=== PATIENT | male | born 1950 | race Caucasian/White ===

== ENCOUNTER 2019-02-28 22:41 | Inpatient (IN) | payer OTHER ==
[~2019-02-28 22:41] MED LIST: ISOVUE-370 76%-LOCM 1 ML ONE
--- NOTE | 2019-02-28 22:58 | CT ---
Exam: Head CT without contrast HISTORY: Level 1 stroke. Right-sided facial droop with sluggish left pupil. Slurred speech. Inability to move right upper extremity. COMPARISON: none FINDINGS: Hemorrhage: No intraparenchymal hemorrhage or extra-axial hematoma. Brain parenchyma: Cortical alonzo-white matter differentiation is preserved. No mass effect or midline shift. Basilar cisterns are patent hypodensities in the left centrum semiovale likely representing remote cavitary lacunar infarcts. Ventricular system: Ventricles and sulci are patent and symmetric. Calvarium: Intact. Sinuses and mastoid air cells: Mild mucosal disease of the right paranasal sinuses. IMPRESSION: No acute intracranial process. Results of study discussed with Dr. Gaspar 02/28/2019 at 1055 Code CR
[2019-02-28 23:12] LABS: #Basophils 0.1 thou/uL (0.0-0.2); #Eosinphils 0.5 thou/uL (0.0-0.7); #Lymphocytes 2.2 thou/uL (1.20-3.40); #Monocytes 0.7 thou/uL (0.11-0.59); #Neutrophils 8.3 thou/uL (1.40-6.50); %Lymphocytes 18.9 % (21.0-51.0); %Monocytes 5.7 % (0.0-10.0); %Neutrophils 70.3 % (42.0-75.0); Hemoglobin 14.9 g/dL (14.0-18.0); Mean Corpuscular HGB CONC 33.8 g/dL (32.0-36.0); Mean Corpuscular Hemoglobin 31.2 pg (27.0-31.0); Mean Corpuscular Volume 92.1 fL (78.0-98.0); Platelet Count 355 thou/uL (130-400); RBC Distribution Width 13.2 % (11.5-14.5); Red Blood Cell (RBC) Count 4.78 mill/uL (4.70-6.10); White Blood Cell (WBC) Count 11.8 thou/uL (4.8-10.8)
[2019-02-28 23:19] LABS: PTT 34.8 SEC (22.9-36.1); Prothrombin Time 13.3 SEC (12.0-14.7)
--- NOTE | 2019-02-28 23:22 | CT ---
Exam: CT angiogram of the head CT angiogram the neck HISTORY: Stroke. Right arm is not moving. Slurred speech. Right facial droop. COMPARISON: None TECHNIQUE: CT angiogram of the neck and head are performed in the axial plane. Three-dimensional refo rmatted images are submitted for dictation FINDINGS: Postcontrast head CT: Cortical alonzo-white matter differentiation is preserved. No evidence of hydroce phalus. White matter hypodensities in the left centrum semiovale are less evident on current examination. Bilateral ocular lenses are appropriately located. Both globes are intact. Right nasal sinus mucosal disease Aerodigestive tract is patent. No mucosal abnormality. No obvious masses in the oral cavity. Midline fatty raphae of the tongue is preserved No prevertebral soft tissue swelling Symmetric attenuation of the parotid and submandibular glands Symmetric attenuation of the sternocleidomastoid muscles line no evidence of lymphadenopathy by size criteria line varying degrees of central canal stenosis or neural foraminal narrowing on the basis of change. Limited evaluation by technique. Extensive emphysematous changes in the visualized lung apices. Soft tissue mass with calcifications i n the right lung apex measuring 1.[address] ANGIOGRAM: Visualized aortic arch has appropriate enhancement and luminal diameter Right carotid: The right carotid artery origin, common carotid artery, carotid bifurcation and international guest coordinator al carotid artery have appropriate enhancement and luminal diameter Left carotid: Left carotid artery origin, common carotid artery of appropriate enhancement and lumina l diameter. There is a combination of calcified and noncalcified plaque involving the left carotid bifurcation and proximal left internal carotid artery. There is short segment severe stenosis of the left internal carotid artery, based upon mass effect criteria. There is also 2 separate areas of ulceration with outpouching of contrast involving the left carotid bifurcation and proximal left in c arotid artery. Largest focus of ulceration measures 0.4 cm. Mid to distal left internal carotid artery is patent Bilateral subclavian arteries are unremarkable. There is mild narrowing of the origin left subclavian artery. Bilateral cervical vertebral arteries are patent. Left vertebral artery is dominant CT angiogram of the head: Distal cervical and intracranial internal carotid arteries have appropriate enhancement diameter Anterior circulation: Symmetric enhancement and luminal diameter of the A1 and M1 segments. Proximal A2 segments and proximal MCA branches are symmetric. Posterior circulation: Intracranial vertebral arteries are patent. Both PICA artery origins are limit ed in evaluation. Both vertebral arteries supply a normal appearing basilar artery. A normal left P1 segment is appreciated. Right P1 segment is not appreciated. Rather, the right [employer] has a khris gin. IMPRESSION: 1. Severe stenosis involving the left internal carotid artery, based on NASCET criteria. 2. Atherosclerosis with atheromatous plaques that have ulceration involving the left carotid bifurca tion and proximal left internal carotid artery. 3. No significant stenosis at the level ione of Shaikh. 4. Soft tissue mass with calcification in the right lung apex, incompletely evaluated 5. Results of study discussed with Dr. Mendosa by 08/10/1911 80 1:00 PM 6. Code CR
[2019-02-28 23:25] LABS: ALT (SGPT) 26 U/L (8-55); AST (SGOT) 35 U/L (5-34); Albumin 4.5 g/dL (3.4-4.8); Alkaline Phosphatase 77 U/L (40-150); Anion Gap 16 mmol/L (10-20); BUN (Urea Nitrogen) 14 mg/dL (8.4-25.7); Bilirubin, Total 0.4 mg/dL (0.2-1.2); CK (CPK) 1599 U/L (30-200); Calc. Creatinine Clearance 0 mL/min (70-130); Carbon Dioxide 25 mmol/L (23-31); Chloride 100 mmol/L (98-107); Estimated GFR-MDRD 53; Globulin 3.2 g/dL (2.4-3.5); Glucose 199 mg/dL (80-115); Potassium 4.1 mmol/L (3.5-5.1); Protein, Total 7.7 g/dL (5.8-8.1); Sodium 137 mmol/L (136-145)
[2019-03-01] MEDS ORDERED: Ondansetron ODT 4 MG TAB PO PRN ×2 (00:41→20:36)
[2019-03-01] MEDS ORDERED: Acetaminophen 325 MG TAB PO PRN (00:41)
[2019-03-01] MEDS ORDERED: Ondansetron PF 4 MG/2 ML Vial IVP PRN ×2 (00:41→20:36)
[2019-03-01] MEDS ORDERED: Labetalol HCl 100 MG/20 ML VIAL SLOW IVP PRN ×2 (00:43→20:36)
[2019-03-01] MEDS: Communication Order-Pharmacy FS SCH (03:00)
[2019-03-01] MEDS: Sodium Chloride 0.9% 1,000 ML IV SCH ×2 (04:28→17:58)
[2019-03-01] MEDS: Gemfibrozil 600 MG TAB PO SCH ×2 (08:04→16:33)
[2019-03-01] MEDS: Lisinopril 20 MG TAB PO SCH (08:40)
[2019-03-01] MEDS: Atorvastatin Calcium 20 MG TAB PO SCH (08:40)
[2019-03-01] MEDS: Furosemide 20 MG TAB PO SCH ×2 (08:40→14:40)
[2019-03-01] MEDS: Famotidine 20 MG TAB PO SCH ×2 (08:47→20:40)
--- NOTE | 2019-03-01 12:16 | RAD ---
Chest AP view INDICATION: History of positive PPD and calcified mass COMPARISON: None FINDINGS: Lungs:There is mild emphysema. Cardiac silhouette pulmonary vasculature:The cardiomediastinal silhouette appears within normal limit s. Pleural spaces:Small left costophrenic angle is excluded. Right costophrenic angle is sharp. Upper abdomen:No abnormality seen. Osseous structures: No acute osseous abnormality. Additional findings:None. IMPRESSION: Mild emphysema. No definite acute cardiopulmonary abnormality evident within the limitati ons of this exam.
--- NOTE | 2019-03-01 12:54 | PRG ---
DATE OF SERVICE: 03/01/2019 SUBJECTIVE: The patient is seen and examined at the bedside. He complains about some shortness of breath and he noticed that his right-sided weakness, which suddenly got worse, did not really change after the tPA treatment. OBJECTIVE: VITAL SIGNS: Blood pressure is 129/89, pulse is 57, respiratory rate is 25, and O2 saturation is 100%. GENERAL: He is in plastic handcuffs. His legs are tied with plastic cuffs too. Two guards are present in the room during my visit. He is an inmate. HEENT: His pupils are somewhat dilated, but symmetrical approximately 4 mm. They respond to light properly. Sclerae are nonicteric. Oral mucosa is moist. NECK: Supple. LUNGS: Slightly diminished breath sounds at both bases. HEART: S1 and S2 normal. No S3. No S4. ABDOMEN: Soft, nontender, and nondistended. EXTREMITIES: No clubbing, cyanosis, or edema. NEUROLOGIC: He follows my commands. He moves his extremities, but there is right-sided weakness in upper and lower extremity. It is approximately 4/5 in both extremities. SKIN: No rash or erythema. LABORATORY DATA: Glycemia is ranging from 180 to 201. MICROBIOLOGY: None. IMAGING: Chest x-ray showed some emphysema. IMPRESSION: 1. Worsened right-sided weakness with some slurred speech, status post tPA without any significant improvement. The patient is scheduled for MRI on his brain. 2. Chronic obstructive pulmonary disease. We are going to start him on DuoNeb q.4 hours p.r.n. as needed. 3. Bradycardia. We will cut back on his beta lazara to half dose. 4. Diabetes mellitus. We will start him on his glipizide 5 mg twice a day and we will continue Accu-Cheks before meals and at bedtime. PLAN: Neurology consultation is still pending. We will obtain CBC and BMP this morning. We will continue Accu-Cheks as ordered before meals and at bedtime. DuoNeb will be started every 4 hours p.r.n. and remain in the intensive care unit until tomorrow. Job ID: [id number]
[2019-03-01] MEDS ORDERED: Lorazepam 2 MG/ML VIAL SLOW IVP PRN (15:50)
--- NOTE | 2019-03-01 18:20 | CON ---
DATE OF CONSULTATION: 03/01/2019 HISTORY OF PRESENT ILLNESS: Mr. Polk is a 68-year-old male with [employer] inmate. He reports loss of right leg and right arm function yesterday evening. He is seen in the emergency department. He has had no change in his speech. He has undergone a CT angiogram of his head, which shows a severe left internal carotid stenosis, plaque ulceration of the left carotid bifurcation and proximal left internal carotid artery, calcified right apical lung mass. He says he has had a stroke involving his right upper extremity, right lower extremity in the past, but he had return of majority of his function. CT of his head showed left centrum semiovale hypodensities suggestive of remote lacunar infarcts. PAST MEDICAL HISTORY: Remarkable for; 1. Hypertension. 2. Herniorrhaphy in the past. 3. History of COPD. 4. History of lipid disorder. 5. History of diabetes. 6. History of cholecystectomy. SOCIAL HISTORY: Noncontributory. FAMILY HISTORY: Negative for lung disease in early age. REVIEW OF SYSTEMS: A 10-point review of systems completed, otherwise negative. PHYSICAL EXAMINATION: GENERAL: He is very pleasant gentleman, in no distress. VITAL SIGNS: Heart rate 60, blood pressure 115/89, respiratory rate 17, and oximetry is 100%. HEENT: Pupils react. Sclerae anicteric. Extraocular movements appear full. NECK: Supple. LUNGS: Clear. HEART: Regular rhythm. S1 and S2 normal. ABDOMEN: Soft and nontender. EXTREMITIES: Flaccid in right lower extremity and right upper extremity. IMPRESSION: ? Cerebrovascular accident. I am surprised he has speech given the density of his right upper extremity and right lower extremity neuro deficits. Neurology has been consulted. He is having no acute hemodynamic or respiratory issues at this time. We will follow the other physicians. TIME SPENT: This is a 70-minute consult, with greater than 50% of the time spent on the unit coordinating care. ADDENDUM: I went back in and requestioned Mr. Polk. He says he took INH and B6 for many months, but he says he has never been told he had active tuberculosis or had a past pulmonary infection that was tuberculosis. He does report having pneumonia in the past. With regard to the calcified density of his apex, I will start with a chest x- ray. Job ID: [id number] [facility]
--- NOTE | 2019-03-01 19:00 | CON ---
DATE OF CONSULTATION: 03/01/2019 TELEMEDICINE CONSULTATION WITH BETTY SCHAFFER CHIEF COMPLAINT: Acute stroke. HISTORY OF PRESENT ILLNESS: History was obtained both from the chart and the patient's report. The patient apparently was short of breath yesterday and he lost his sensation on the right side and developed right-sided weakness, which began around 2102 hours and he was at the ER by 2229 hours last night and he was given IV tPA without much improvement of his weakness. He also felt numbness. He had prior strokes and had residual right-sided weakness. At baseline, he walks with a walker. He is in the [place] [employer] at this time and is an inmate. The patient uses a walker, has residual right-sided weakness from his prior CVAs. PREVIOUS MEDICAL HISTORY: CVA in 2000 and 2006. Also diabetic. He takes insulin. He took insulin in the past along with metformin and currently on oral medication for diabetes and he stated this is well controlled at this time. 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 Hypercholesterolemia. Three MIs in the past and a history of cleft palate. FAMILY HISTORY: Positive for CVA in his mother, who at age 83 and his father at age 89 following coronary artery disease. Father was also alcoholic. His brother had coronary artery disease and at age of 48. He has six daughters ranging from ages 45 to 7, youngest daughter is 7 years old. One of his daughters, who is 31 has coronary artery disease and diabetes. SOCIAL HISTORY: He used to smoke and drink. He was alcoholic, but he has not drank nor smoked in the last five years and he is an inmate at the [place] [employer]. REVIEW OF SYSTEMS: PULMONARY: Negative for cough, but positive for shortness of breath. GI: Negative for nausea, diarrhea, or vomiting. NEUROLOGIC: Positive for right-sided weakness and numbness. DERMATOLOGIC: Negative for skin rash or any other issues. HEMATOLOGIC: Negative for any bleeding diatheses. CARDIAC: Negative for chest pain. LABORATORY WORKUP: White count 11.8, hemoglobin 14.9, hematocrit 44, and platelet count 355. Coags; PT 13.3, INR 1, and PTT 34.8. Chemistry; sodium 137, potassium 4.1, chloride 100, bicarb 25, BUN 14, creatinine 1.34, and glucose 199. CPK 1599 and his cholesterol panel is pending and his CT angiogram was completed yesterday and his CTA showed severe stenosis of the left ICA based on NASCET criteria and atherosclerosis with atheromatous plaques with ulceration involving left carotid bifurcation and proximal left ICA. No stenosis at the level of the [place] of [place] and he has a soft tissue mass with calcification in the right lung apex, which needs to be evaluated further. CT of the head was unremarkable. The patient is waiting for his MRI of the brain. PHYSICAL EXAMINATION: VITAL SIGNS: Blood pressure 135/90, heart rate 56, he is afebrile with temperature of 97.9, and respiratory rate 16. GENERAL APPEARANCE: Well-built, well-nourished gentleman. CHEST: Showed decreased breath sounds. CARDIOVASCULAR: S1 and S2 heard. No murmurs. ABDOMEN: Soft. NEUROLOGIC: Higher intellectual functions. Oriented to time, place, and person and appropriate conversation. Cranial nerves normal extraocular movements. He has facial asymmetry, mostly mild on the right side. His pupils are equally reactive at 4 mm bilaterally. Tongue midline. No atrophy noted. Normal sensation of face bilaterally. Hearing is normal. Motor bulk normal. Tone normal. Strength over 5/5 on the left side and he had flaccid weakness on the right side. He has 0/5 strength on the right side. Muscle groups tested are deltoid, biceps, triceps, wrist extension, flexion, finger extension and flexion bilaterally. Deep tendon reflexes are 2+ throughout. Sensory examination showed decreased sensation on the right side. Cerebellar normal on the left side. IMPRESSION: The patient is a 68-year-old man with dense right hemiparesis even post IV tPA administration. He is currently waiting on his MRI of the brain to determine the exact location of his CVA. It could be related to his left internal carotid artery occlusion or could be more of an internal capsule lesion. RECOMMENDATIONS: Please follow the acute tPA protocol for stroke management. Continue aspirin and statin and I will check on his MRI, will be back to round on him tomorrow. Job ID: [id number] [facility]
[2019-03-01] MEDS: Venlafaxine HCl XR 75 MG CAP PO SCH (20:41)
[2019-03-01] MEDS: glipiZIDE 5 MG TAB PO SCH (20:41)
[2019-03-01] MEDS: Acetaminophen 325 MG TAB PO PRN (20:42)
[2019-03-01] MEDS: Latanoprost 0.005% Ophth Soln 2.5 ml Bottle EA EYE SCH (20:43)
[2019-03-01 22:53] LABS: #Basophils 0.1 thou/uL (0.0-0.2); #Eosinphils 0.5 thou/uL (0.0-0.7); #Lymphocytes 2.7 thou/uL (1.20-3.40); #Monocytes 0.7 thou/uL (0.11-0.59); #Neutrophils 5.4 thou/uL (1.40-6.50); %Basophils 1.4 % (0.0-1.0); %Eosinophils 5.1 % (0.0-10.0); %Lymphocytes 29.2 % (21.0-51.0); %Neutrophils 57.3 % (42.0-75.0); Hemoglobin 14.3 g/dL (14.0-18.0); Mean Corpuscular HGB CONC 34.2 g/dL (32.0-36.0); Mean Corpuscular Hemoglobin 31.3 pg (27.0-31.0); Mean Corpuscular Volume 91.5 fL (78.0-98.0); Mean Platelet Volume 6.8 fL (7.4-10.4); Platelet Count 344 thou/uL (130-400); RBC Distribution Width 13.3 % (11.5-14.5); Red Blood Cell (RBC) Count 4.55 mill/uL (4.70-6.10); White Blood Cell (WBC) Count 9.3 thou/uL (4.8-10.8)
[2019-03-02] MEDS: Communication Order-Pharmacy FS SCH (01:00)
[2019-03-02] MEDS: Sodium Chloride 0.9% 1,000 ML IV SCH ×2 (05:53→21:45)
[2019-03-02] MEDS: Gemfibrozil 600 MG TAB PO SCH ×2 (07:45→16:30)
[2019-03-02 08:38] LABS: #Basophils 0.1 thou/uL (0.0-0.2); #Eosinphils 0.7 thou/uL (0.0-0.7); #Lymphocytes 2.4 thou/uL (1.20-3.40); #Monocytes 0.7 thou/uL (0.11-0.59); #Neutrophils 5.9 thou/uL (1.40-6.50); %Basophils 1.3 % (0.0-1.0); %Eosinophils 6.8 % (0.0-10.0); %Monocytes 6.8 % (0.0-10.0); %Neutrophils 60.1 % (42.0-75.0); Mean Corpuscular HGB CONC 33.9 g/dL (32.0-36.0); Mean Corpuscular Hemoglobin 31.6 pg (27.0-31.0); Mean Corpuscular Volume 93.3 fL (78.0-98.0); Platelet Count 340 thou/uL (130-400); RBC Distribution Width 13.7 % (11.5-14.5); Red Blood Cell (RBC) Count 4.74 mill/uL (4.70-6.10); White Blood Cell (WBC) Count 9.8 thou/uL (4.8-10.8)
[2019-03-02] MEDS: glipiZIDE 5 MG TAB PO SCH ×2 (08:54→22:04)
[2019-03-02] MEDS: Lisinopril 20 MG TAB PO SCH (08:54)
[2019-03-02] MEDS: Atorvastatin Calcium 20 MG TAB PO SCH (08:54)
[2019-03-02] MEDS: Famotidine 20 MG TAB PO SCH ×2 (08:54→22:04)
[2019-03-02] MEDS: Furosemide 20 MG TAB PO SCH ×2 (08:54→14:06)
[2019-03-02 09:01] LABS: Anion Gap 18 mmol/L (10-20); BUN (Urea Nitrogen) 13 mg/dL (8.4-25.7); Calc. Creatinine Clearance 109 mL/min (70-130); Calcium 9.4 mg/dL (7.8-10.44); Carbon Dioxide 15 mmol/L (23-31); Chloride 106 mmol/L (98-107); Estimated GFR-MDRD 71; Glucose 156 mg/dL (80-115); Potassium 4.6 mmol/L (3.5-5.1); Sodium 134 mmol/L (136-145)
--- NOTE | 2019-03-02 09:57 | PRG ---
DATE OF SERVICE: 03/02/2019 SUBJECTIVE: Mr. Polk has more use of his right upper extremity today. He is actually able to use his right upper extremity to balance him sitting on the side of the bed. He has no movement of his right lower extremity. He has no new complaints. OBJECTIVE: VITAL SIGNS: Blood pressure 165/95, heart rate 54, respiratory rate 15, oximetry is 100%. HEENT: Pupils reactive. Sclerae are anicteric. LUNGS: Clear. HEART: Regular rhythm. S1 and S2 are normal. ABDOMEN: Soft and nontender. EXTREMITIES: Unchanged. LABORATORY DATA: White count 9.8, hemoglobin 15.0, and platelets 340,000. Sodium 134, potassium 4.6, chloride 106, bicarb 15, BUN 13, creatinine 1.04, and glucose 156. IMPRESSION: 1. Thrombotic cerebrovascular accident status post tPA. 2. History of cerebrovascular accident in the past. 3. 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 4. Obesity. 5. History of hypertension. 6. History of chronic obstructive pulmonary disease with no bronchospasm at this time. 7. Diabetes. 8. History of lipid disorder. PLAN: He is stable to move to a stroke unit in my opinion. We will sign off when he transfers out of the critical care unit. Job ID: [id number]
--- NOTE | 2019-03-02 11:33 | PRG ---
DATE OF SERVICE: 03/02/2019 TELEMEDICINE CONSULTATION WITH MICHAEL SCHAFFER CHIEF COMPLAINT: Acute stroke. INTERVAL HISTORY: The patient is now able to move his fingers in the right hand and toes continuously. He has been asymptomatic as far as side effects from tPA. He reports he feels slightly better. LABORATORY WORKUP: White count 9.8, hemoglobin 15, hematocrit 44.3, and platelet count 340. Sodium 134, potassium 4.6, chloride 106, bicarb 15, BUN 13, creatinine 1.04, and glucose 156. His MRI is still pending. PHYSICAL EXAMINATION: VITAL SIGNS: Blood pressure 160/97, pulse is 58, and temperature is 97.8. GENERAL APPEARANCE: Well-built, well-nourished man, who is in shackles, seems more comfortable than yesterday. CHEST: Clear. NEUROLOGIC: Cranial nerve examination, normal extraocular movements. Tongue midline. Motor examination, strength 5/5 on the left side. On the right side, he was able to elevate and hold his arm and leg up against gravity for a few seconds with help and had some movement of his fingers and toes, which can be graded best as 1+. IMPRESSION: The patient is a 68-year-old man, who had an acute cerebrovascular accident with generalized weakness on the right side of the face, arm, and leg distribution. He received IV tPA. He is currently pending MRI of the brain and full workup including cardiac workup is pending. RECOMMENDATIONS: Please continue current anti-platelet agents and if MRI is abnormal, please call Dr. Leiva. Job ID: [id number] [facility]
[2019-03-02] MEDS: Latanoprost 0.005% Ophth Soln 2.5 ml Bottle EA EYE SCH (22:04)
[2019-03-02] MEDS: Venlafaxine HCl XR 75 MG CAP PO SCH (22:05)
--- NOTE | 2019-03-02 22:12 | CON ---
DATE OF CONSULTATION: 03/02/2019 CHIEF COMPLAINT: Right-sided weakness. HISTORY OF PRESENT ILLNESS: The patient is a 68-year-old hypertensive, diabetic male with known cerebral vascular disease. He describes left hemispheric strokes in 2007 and in 2018. At baseline, both his right leg and arm are weak, but he is able to use his right arm with some limitations in part due to arthritic issues with his shoulder in addition to his stroke, but is able to do simple movements and is able to write. His right leg is at baseline weak, but he is able to walk with a walker. Two days ago, he had sudden onset of complete loss of his right arm and leg and was treated with tPA upon presentation here. He has had minimal recovery of use of that arm and leg over the last couple of days. CT angiography demonstrated essentially normal right carotid system, but an extensively ulcerated lesion at the bulb and proximal ICA on the left. PAST MEDICAL HISTORY: Significant for hypertension, hyperlipidemia, diabetes, and COPD. He has had a previous cholecystectomy and herniorrhaphy. MEDICATIONS: His normal medications are: 1. Metformin 1000 mg b.i.d. 2. Glipizide 5 mg b.i.d. 3. Toprol-XL 100 mg b.i.d. 4. Lisinopril 20 mg a day. 5. Lasix 20 mg b.i.d. 6. Lipitor 20 mg a day. 7. Baby aspirin a day. 8. Omeprazole 20 mg a day. 9. Ranitidine 150 mg b.i.d. 10. Effexor 75 mg at bedtime. 11. Gemfibrozil 600 mg p.o. b.i.d. 12. Latanoprost eye drops each eye in the evening. 13. His Toprol was cut to 50 mg b.i.d., but he is on nicardipine drip. ALLERGIES: HE DENIES ANY MEDICAL ALLERGIES. SOCIAL HISTORY: He smoked for many years, but quit at the start of his current period of incarceration about 3 years ago. FAMILY HISTORY: Negative for any known lung disease. His mother lived age 83, but had a stroke. His father lived age 89, but had coronary artery disease. He has a brother, who of coronary artery disease in his late 40s. He has a child, whose age 31 and has coronary artery disease and diabetes. REVIEW OF SYSTEMS: Negative for any antecedent eye, speech, facial or extremity symptoms consistent with TIAs. It is negative for any chest pain. It is positive for shortness of breath, saying that sometimes with simply walking from one room to another, he will get short of breath. He has had a recent nonproductive cough. He denies any hemoptysis. He denies any orthopnea, PND, or pedal edema. He denies any seizures. He denies any weight loss. Denies any change in bowel or bladder habits, color or character caliber of stools. He denies any known tuberculosis exposure, but describes about 20 years ago, having had a positive PPD when he was first incarcerated. He completed a course of INH at that time. PHYSICAL EXAMINATION: GENERAL: He is in no distress. VITAL SIGNS: On presentation, his heart rate was 62, and blood pressure 143/87. Most recently, his heart rate is 60, blood pressure 126/84, and O2 saturations are in the 99% to 100% range on 2 L nasal cannula. HEENT: He is edentulous. He has no xanthelasma. NECK: No JVD. No carotid bruits. CHEST: Clear to auscultation. When asked to blow out forcefully against my hand, he moves very little air and starts coughing. HEART: He has a regular rate and rhythm. ABDOMEN: Soft and nontender. EXTREMITIES: He has no clubbing, cyanosis, or edema. NEUROLOGIC: Cranial nerves 2 through 12 are grossly intact with possible exception of right trapezius distribution. He reports difficulty with elevating that shoulder of long-standing because of arthritic problems related to that shoulder. He is able to very feebly wiggle his right toes and right fingers, very feebly able to do minimal elbow flexion overcoming gravity. He is not able to do any more than that with his right arm or with his right leg. He is not able to maintain the extension against resistance. DIAGNOSTIC DATA: His chest x-ray has some hazy densities in the lower cuts of . CT angiogram shows right-sided lung mass towards the apex with some speckles of calcification. His right carotid system is essentially clean with one tiny speck of calcified plaque at the carotid bifurcation, but no stenosis on the left side. The internal carotid has a fairly right-angled takeoff at the bulb. There is a complex ulcerated plaque in the bulb extending into the proximal ICA with luminal stenosis ranging from about 50% to about 80%. LABORATORY DATA: Shows white count of 11.8, hemoglobin of 14.9, hematocrit 44.0, platelets at 355,000. On presentation, his PT was 13.3, INR 1.0, and PTT 34.8. His electrolytes were normal and glucose was 199, BUN 14, creatinine 1.34, calcium was 10, bilirubin 0.4, AST 35, ALT 26, alkaline phosphatase 77. CK was 1599, but troponin was less than 0.010. Protein is 7.7, albumin 3.2. His Accu-Cheks have mostly been in the upper 100s to low 200s. Followup set of chemistries this morning show a BUN of 13 and creatinine of 1.04 with a glucose of 156. IMPRESSION AND RECOMMENDATIONS: Probably the more pressing issue is his acute stroke. The patient received tPA in the emergency room and really has had very little functional recovery. His initial CT scan did not show any obvious massive injury and MRI to follow that up is pending. He certainly has had a dramatic worsening of his neurologic deficit. The degree of stenosis is significant, but not critical. I will follow him at least briefly to monitor for functional recovery to decide about timing of endarterectomy. He is going to need a dedicated CT scan of the chest with IV contrast to evaluate his lung mass, although this could I suppose represent a tuberculoma given his past history of a positive PPD, I would assume that this is new compared to then, since he only underwent a course of INH rather than treatment for active disease. He will probably need formal PFTs, but simply based on bedside assessment when I asked him blow out hard against my hand and what he describes about his limitations, he may not be a very good candidate for any sort of resection if this mass does prove to represent a malignancy. Job ID: [id number]
[2019-03-02] MEDS: Acetaminophen 325 MG TAB PO PRN (23:20)
--- NOTE | 2019-03-03 07:14 | HP ---
PRIMARY CARE DOCTOR: The patient has no PCP. CODE STATUS: Full code. TIME OF EVALUATION: 12:00 a.m. CHIEF COMPLAINT: Right-sided deficit. HISTORY OF PRESENT ILLNESS: This is a 68-year-old male patient with past medical history of previous stroke x3, hypertension, hyperlipidemia, diabetes, came to the hospital after having right-sided weakness associated with slurred speech. Symptoms were severe. The patient is unable to move his extremities on the right side at all. No clear triggers, no alleviating factors. Symptoms started around 9:00 p.m. and was brought in, stroke alert was called. The patient is receiving tPA; for that reason, will be placed in ICU. REVIEW OF SYSTEMS: CONSTITUTIONAL: No fever, chills, or generalized weakness. RESPIRATORY: No cough, sputum production, or shortness of breath. CARDIOVASCULAR: No chest pain or palpitation. GASTROINTESTINAL: No nausea. No vomiting, diarrhea, or abdominal pain. 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 No headaches or feeling lightheaded. GENITOURINARY: No burning on urination. EXTREMITIES: No leg swelling. All other systems were reviewed and negative except for the findings mentioned above. PAST MEDICAL HISTORY: As mentioned in the HPI. PAST SURGICAL HISTORY: Positive for hernia surgery x3, gallbladder surgery. FAMILY HISTORY: Reviewed and noncontributory for current presentation. KNOWN ALLERGIES: No known drug allergies reported. REPORTED MEDICATIONS: 1. Venlafaxine. 2. Aspirin. 3. Atorvastatin. 4. Lasix. 5. Gemfibrozil. 6. Glipizide. 7. Latanoprost. 8. Lisinopril. 9. Metformin. 10. Metoprolol. 11. Omeprazole. 12. Ranitidine. 13. Simethicone. PHYSICAL EXAMINATION: VITAL SIGNS: On presentation, blood pressure 143/87 with heart rate 62, respiratory rate was 18, temperature 98.4, pain was 6/10, oxygen saturation was 94% on room air. GENERAL APPEARANCE: The patient is alert, oriented, not in acute distress. HEENT: Eyes; normal conjunctivae. Moist oral mucosa. Anicteric. NECK: No JVD. RESPIRATORY: Bilateral air entry. No rales. No wheezes. Symmetric expansion. CARDIOVASCULAR: Normal rate, regular rhythm. No murmurs. No gallop. No edema. ABDOMEN: Soft. Normal bowel sounds. MUSCULOSKELETAL: Baseline range of motion and strength. No tenderness. Residual right-sided deficit from the stroke. SKIN: Warm, intact. No pallor. No rash. No redness. Peripheral pulses are present. Capillary refill seems to be intact. NEUROLOGIC: The patient has right-sided weakness with total deficit and dysarthria. Otherwise, cranial nerves seems to be intact. PSYCH: The patient is in good mood. No anxiety. Optimal judgment. IMAGING STUDIES: EKG was reviewed. The patient has sinus bradycardia with first-degree AV block, ventricular rate 59, QT-corrected 409. CT angio was done of the brain and neck. The patient had severe stenosis involving the left internal carotid artery, atherosclerosis with atheromatous plaques and initiation involving the left carotid bifurcation and proximal left internal carotid artery. No significant stenosis at the level of the [place] of [place]. Soft tissue mass with calcification in the right lung apex, incompletely evaluated. CT without contrast showed no acute intracranial process. LABORATORY DATA: Labs were reviewed and the patient has white count 11.8, hemoglobin 14.9, MCV 92.1, platelet count 255. Coagulation; PT 13.3, INR 1.0, PTT 34.8. Chemistry, sodium 137, potassium 4.1, chloride 100, carbon dioxide 25, anion gap 16, BUN 14, creatinine 1.34, GFR 53, glucose 199, calcium 10, total bilirubin 0.4, AST 35, ALT 26, alkaline phosphatase 77, CK 1599. ASSESSMENT AND PLAN: The patient will be placed in the hospital with following medical problems: 1. Acute stroke, status post cerebrovascular accident. The patient is going to ICU to follow post cerebrovascular accident protocol. We will control the blood pressure. We will watch for any bleeding and we will watch the mentation in case the patient needs a repeat CT. 2. Uncontrolled diabetes. We will reconcile home medications. We will place the patient on sliding scale for optimal control. We will hold p.o. glipizide and metformin until the patient is out of risk for contrast-induced nephropathy. 3. Deep venous thrombosis prophylaxis. Past medical history is hyperlipidemia, low-cholesterol diet is advised. Needs better control of diabetes. 4. Control of blood pressure is being within normal limits after admission. We will reconcile home medications. Adjust as needed. 5. Deep venous thrombosis prophylaxis. Job ID: [id number]
--- NOTE | 2019-03-03 08:06 | PDOC.PN ---
- Subjective Encounter Start Date: 03/03/19 Encounter Start Time: 10:00 Subjective: Patient with some mild movement in RLE, RUE a bit stronger. Feels a -: bit tired from sedative for MRI this AM. No other complaints. - Objective Resuscitation Status - Order Detail: 03/01/19 00:41 Resuscitation Status Routine Resuscitation Status: FULL: Full Resuscitation MAR Reviewed: Yes Vital Signs & Weight: Vital Signs (12 hours) Temp Pulse Resp BP Pulse Ox 03/03/19 07:51 97.4 F L 57 L 18 118/74 93 L 03/03/19 04:00 97.4 F L 54 L 18 105/73 91 L 03/03/19 00:12 94 L 03/03/19 00:05 94 L 03/03/19 00:00 97.7 F 54 L 19 96/59 L 92 L 03/02/19 20:30 94 L Weight Weight 248 lb 3 oz Most Recent Monitor Data Heart Rate from ECG 68 NIBP 148/91 NIBP BP-Mean 110 Respiration from ECG 23 SpO2 100 I&O: 03/02/19 03/03/19 03/04/19 06:59 06:59 06:59 Intake Total 1500 2131 Output Total 4550 2525 Balance -3050 -394 Result Diagrams: 03/02/19 08:17 03/02/19 08:17 Additional Labs: Accuchecks 03/03/19 03/02/19 03/02/19 06:12 22:00 16:25 POC Glucose 134 H 152 H 140 H 03/02/19 11:11 POC Glucose 193 H Radiology Reviewed by me: Yes (MRI neg for stroke or bleed, CT chest with 2cm mass vs. scarring, needs PET) Phys Exam - Physical Examination Constitutional: NAD HEENT: moist MMs Respiratory: no wheezing, no rales, no rhonchi Cardiovascular: RRR, no significant murmur Gastrointestinal: soft, positive bowel sounds Musculoskeletal: no edema 3.5/5 strength RUE, 2-3/5 strength RLE Psychiatric: normal affect, A&O x 3 Dx/Plan (1) Acute ischemic stroke Code(s): I63.9 - CEREBRAL INFARCTION, UNSPECIFIED Status: Acute Comment: Severe worsening of RUE and RLE weakness, MRI neg, s/p TPA without complication (2) Carotid stenosis Code(s): I65.29 - OCCLUSION AND STENOSIS OF UNSPECIFIED CAROTID ARTERY Status : Acute Qualifiers: Laterality: left Qualified Code(s): I65.22 - Occlusion and stenosis of left carotid artery Comment: Severe stenosis of Left ICA, ulcerated plaque of Left Carotid bulb and ICA, Dr. Mccarthy following, likely CEA as outpatient after recovery from acute stroke (3) Lung mass Code(s): R91.8 - OTHER NONSPECIFIC ABNORMAL FINDING OF LUNG FIELD Status: Acute Comment: calcified soft tissue mass in right lung apex, most likely scar per CT this AM but can't exclude mass, needs outpatient PET scan (4) Diabetes mellitus type 2 in obese Code(s): E11.69 - TYPE 2 DIABETES MELLITUS WITH OTHER SPECIFIED COMPLICATION; E66.9 - OBESITY, UNSPECIFIED Status: Chronic Comment: on oral hypoglycemics , decent control (5) Bradycardia Code(s): R00.1 - BRADYCARDIA, UNSPECIFIED Status: Acute Comment: decreased Metoprolol dose - Plan cont current plan of care, PT/OT, DVT proph w/SCDs restart aspirin and low dose lovenox since MRI negative for bleeding -[facility] -: outpatient PET to further evaluate lung scar vs. mass * . - Discharge Day Encounter end time: 10:20
[2019-03-03] MEDS: Atorvastatin Calcium 20 MG TAB PO SCH (08:18)
[2019-03-03] MEDS: Furosemide 20 MG TAB PO SCH ×2 (08:18→13:22)
[2019-03-03] MEDS: glipiZIDE 5 MG TAB PO SCH ×2 (08:18→21:56)
[2019-03-03] MEDS: Lisinopril 20 MG TAB PO SCH (08:18)
[2019-03-03] MEDS: Gemfibrozil 600 MG TAB PO SCH ×2 (08:18→16:10)
[2019-03-03] MEDS: Famotidine 20 MG TAB PO SCH (08:19)
--- NOTE | 2019-03-03 08:43 | PRG ---
DATE OF SERVICE: 03/02/2019 SUBJECTIVE: The patient is seen and examined at the bedside. He is in plastic handcuffs and two guards by the door present. There was no any unexpected events overnight. OBJECTIVE: VITAL SIGNS: Blood pressure is 160/97, pulse is 58, respiratory rate is 23, O2 saturation is 100%. HEENT: His head is atraumatic and normocephalic. Eyes are PERRLA. Sclerae are nonicteric. Oral mucosa is . LUNGS: Breath sounds diminished at both bases. No wheezing. HEART: S1, S2 normal. No S3. No S4. ABDOMEN: Soft, nontender. EXTREMITIES: No clubbing, cyanosis, or edema. NEUROLOGICAL EXAMINATION: He follows my commands. He moves his all four extremities. I do not see any facial droop. He has some weakness from the previous stroke in the right upper and lower extremity. SKIN: No rash or erythema. LABORATORY DATA: White count of 9.8, hemoglobin 15.0, hematocrit 44.3, platelet count is 340. Chemistry showed sodium of 134, potassium 4.6, chloride 106, CO2 15, BUN is 13, creatinine 1.04. Glycemia is ranging from 123 to 216, calcium is 9.4. IMPRESSION: 1. Most likely left cerebrovascular accident with right-sided weakness and some slurred speech, status post tPA. MRI of the brain is pending. The patient is clinically stable. Will be moved to the Stroke Unit. 2. Chronic obstructive pulmonary disease, on DuoNebs, improved. 3. Bradycardia. The patient was started on half dose of his beta-lazara yesterday and his pulse is still below 60. We will watch him closely. 4. Diabetes mellitus, improved glycemia since we started him on his glipizide 5 mg twice a day. 5. Acidosis, which looks like metabolic and this could be RTA. PLAN: As mentioned above, transfer to Stroke Unit. MRI of the brain. Continue his current regimen with atorvastatin, and metoprolol 50 mg twice a day, which is half a dose and then, will be restarted since this was recommended by neurologist. Job ID: [id number]
[2019-03-03] MEDS ORDERED: Lorazepam 2 MG/ML VIAL SLOW IVP PRN (09:00)
[2019-03-03] MEDS: Sodium Chloride 0.9% 1,000 ML IV SCH ×2 (09:03→21:57)
--- NOTE | 2019-03-03 09:28 | MRI ---
Exam: Brain MRI without contrast HISTORY: Right facial droop. Sluggish left pupil. COMPARISON: None FINDINGS: Calvarial marrow signal intensity: Appropriate T1 signal Gradient echo sequence: No hemorrhage Brain parenchyma: No mass, mass effect or midline shift. Brain volume, age-appropriate. Cortical alonzo-white matter differentiation: Preserved Restricted diffusion: Central arterial flow voids are maintained. Absent restricted diffusion White matter signal intensities: T2, FLAIR white matter hyperintensities due to chronic small vessel ischemic changes Sinuses: Mild mucosal disease and thickening involving bilateral ethmoid air cells and maxillary sinu ses. Partial opacification of bilateral mastoid air cells. IMPRESSION: 1. Absent restricted diffusion. No acute infarction 2. Age-appropriate atrophy. There are chronic small vessel ischemic changes of the white matter.
[2019-03-03] MEDS ORDERED: ISOVUE-370 76%-LOCM 1 ML ONE (09:51)
--- NOTE | 2019-03-03 10:09 | CT ---
CT CHEST WITH IV CONTRAST: HISTORY: Right lung mass. Cough FINDINGS: There are emphysematous changes in the lung العلي bilaterally with a 2 cm partially calcified densit y in the posterior aspect of the right upper lobe close to the lung apex. This likely represents scarring though the possibility of a mass cannot be completely excluded. Evaluation with PET scan wou ld be helpful. No other masses are nodules are seen. No mediastinal, hilar or axillary mass or lymphadenopathy is seen. There are vascular calcifications without aneurysm of the thoracic aorta. No pleural or pericardial effusions are identified. Upper abdominal tomograms demonstrate changes of fatty infiltration of the liver and previous cholecy stectomy. There are degenerative changes in the spine. IMPRESSION: Mass versus scarring in the right lung apex. RECOMMENDATION: Further evaluation with PET scan is recommended.
[2019-03-03] MEDS ORDERED: Enoxaparin Sodium 40 MG/0.4 ML SYRINGE SC SCH (10:30)
[2019-03-03] MEDS ORDERED: Aspirin 81 mg Enteric Coated Tablet PO SCH (10:30)
--- NOTE | 2019-03-03 12:13 | CT ---
Exam: CT angiogram of the head CT angiogram the neck HISTORY: Stroke. Right arm is not moving. Slurred speech. Right facial droop. COMPARISON: None TECHNIQUE: CT angiogram of the neck and head are performed in the axial plane. Three-dimensional refo rmatted images are submitted for dictation FINDINGS: Postcontrast head CT: Cortical alonzo-white matter differentiation is preserved. No evidence of hydroce phalus. White matter hypodensities in the left centrum semiovale are less evident on current examination. Bilateral ocular lenses are appropriately located. Both globes are intact. Right nasal sinus mucosal disease Aerodigestive tract is patent. No mucosal abnormality. No obvious masses in the oral cavity. Midline fatty raphae of the tongue is preserved No prevertebral soft tissue swelling Symmetric attenuation of the parotid and submandibular glands Symmetric attenuation of the sternocleidomastoid muscles line no evidence of lymphadenopathy by size criteria line varying degrees of central canal stenosis or neural foraminal narrowing on the basis of change. Limited evaluation by technique. Extensive emphysematous changes in the visualized lung apices. Soft tissue mass with calcifications i n the right lung apex measuring 1.[address] ANGIOGRAM: Visualized aortic arch has appropriate enhancement and luminal diameter Right carotid: The right carotid artery origin, common carotid artery, carotid bifurcation and risk management internship al carotid artery have appropriate enhancement and luminal diameter Left carotid: Left carotid artery origin, common carotid artery of appropriate enhancement and lumina l diameter. There is a combination of calcified and noncalcified plaque involving the left carotid bifurcation and proximal left internal carotid artery. There is short segment severe stenosis of the left internal carotid artery, based upon mass effect criteria. There is also 2 separate areas of ulceration with outpouching of contrast involving the left carotid bifurcation and proximal left in c arotid artery. Largest focus of ulceration measures 0.4 cm. Mid to distal left internal carotid artery is patent Bilateral subclavian arteries are unremarkable. There is mild narrowing of the origin left subclavian artery. Bilateral cervical vertebral arteries are patent. Left vertebral artery is dominant CT angiogram of the head: Distal cervical and intracranial internal carotid arteries have appropriate enhancement diameter Anterior circulation: Symmetric enhancement and luminal diameter of the A1 and M1 segments. Proximal A2 segments and proximal MCA branches are symmetric. Posterior circulation: Intracranial vertebral arteries are patent. Both PICA artery origins are limit ed in evaluation. Both vertebral arteries supply a normal appearing basilar artery. A normal left P1 segment is appreciated. Right P1 segment is not appreciated. Rather, the right EQUIPMENT SERVICE ASSOCIATE has a khris gin. IMPRESSION: 1. Severe stenosis involving the left internal carotid artery, based on NASCET criteria. 2. Atherosclerosis with atheromatous plaques that have ulceration involving the left carotid bifurca tion and proximal left internal carotid artery. 3. No significant stenosis at the level [place] of Shaikh. 4. Soft tissue mass with calcification in the right lung apex, incompletely evaluated 5. Results of study discussed with Dr. Gaspar 02/28/2019 1:00 PM 6. Code CR Transcribed Date/Time: 03/03/2019 12:12 PM
[2019-03-03] MEDS: Venlafaxine HCl XR 75 MG CAP PO SCH (21:56)
[2019-03-03] MEDS: Latanoprost 0.005% Ophth Soln 2.5 ml Bottle EA EYE SCH (21:57)
[2019-03-04] MEDS: glipiZIDE 5 MG TAB PO SCH ×2 (08:21→21:27)
[2019-03-04] MEDS: Gemfibrozil 600 MG TAB PO SCH ×2 (08:21→16:22)
[2019-03-04] MEDS: Lisinopril 20 MG TAB PO SCH (08:21)
[2019-03-04] MEDS: Aspirin 81 mg Enteric Coated Tablet PO SCH (08:21)
[2019-03-04] MEDS: Atorvastatin Calcium 20 MG TAB PO SCH (08:21)
[2019-03-04] MEDS ORDERED: Enoxaparin Sodium 40 MG/0.4 ML SYRINGE SC SCH (09:00)
[2019-03-04] MEDS: Furosemide 20 MG TAB PO SCH ×2 (09:01→13:42)
--- NOTE | 2019-03-04 09:11 | PDOC.PN ---
- Subjective Encounter Start Date: 03/04/19 Encounter Start Time: 11:00 Subjective: Patient reports strength much better in arm. Still very weak in leg. -: No other complaints. - Objective Resuscitation Status - Order Detail: 03/01/19 00:41 Resuscitation Status Routine Resuscitation Status: FULL: Full Resuscitation MAR Reviewed: Yes Vital Signs & Weight: Vital Signs (12 hours) Temp Pulse Resp BP BP Pulse Ox 03/04/19 08:21 145/87 H 03/04/19 07:50 97.7 F 54 L 20 145/87 H 92 L 03/04/19 04:00 97.5 F L 56 L 19 134/80 93 L 03/03/19 23:42 97.5 F L 58 L 16 134/87 93 L Weight Weight 247 lb 6 oz Most Recent Monitor Data Heart Rate from ECG 68 NIBP 148/91 NIBP BP-Mean 110 Respiration from ECG 23 SpO2 100 I&O: 03/03/19 03/04/19 03/05/19 06:59 06:59 06:59 Intake Total 2131 500 Output Total 2525 1700 Balance -394 -1200 Result Diagrams: 03/02/19 08:17 03/02/19 08:17 Additional Labs: Accuchecks 03/04/19 03/03/19 03/03/19 06:00 20:43 19:19 POC Glucose 128 H 271 H 315 H 03/03/19 03/03/19 16:55 10:46 POC Glucose 224 H 151 H Phys Exam - Physical Examination Constitutional: NAD HEENT: moist MMs Respiratory: no wheezing, no rales, no rhonchi Cardiovascular: RRR, no significant murmur Gastrointestinal: soft, positive bowel sounds decreased strength in RLE Psychiatric: normal affect, A&O x 3 Dx/Plan (1) Acute ischemic stroke Code(s): I63.9 - CEREBRAL INFARCTION, UNSPECIFIED Status: Acute Comment: Severe worsening of RUE and RLE weakness, MRI neg, s/p TPA without complication (2) Carotid stenosis Code(s): I65.29 - OCCLUSION AND STENOSIS OF UNSPECIFIED CAROTID ARTERY Status : Acute Qualifiers: Laterality: left Qualified Code(s): I65.22 - Occlusion and stenosis of left carotid artery Comment: Severe stenosis of Left ICA, ulcerated plaque of Left Carotid bulb and ICA, Dr. Sigtenhorst following, he would like to to CEA urgently due to degree of stenosis and ulceration of plaque. Spoke with [facility] and they prefer patient get CEA done here rather than transfer for inpatient treatment there. (3) Lung mass Code(s): R91.8 - OTHER NONSPECIFIC ABNORMAL FINDING OF LUNG FIELD Status: Acute Comment: calcified soft tissue mass in right lung apex, most likely scar per CT this AM but can't exclude mass, needs repeat CT as outpatient, appreciate Dr. Rodriguez's recommendations (4) Diabetes mellitus type 2 in obese Code(s): E11.69 - TYPE 2 DIABETES MELLITUS WITH OTHER SPECIFIED COMPLICATION; E66.9 - OBESITY, UNSPECIFIED Status: Chronic Comment: on oral hypoglycemics , decent control (5) Bradycardia Code(s): R00.1 - BRADYCARDIA, UNSPECIFIED Status: Acute Comment: decreased Metoprolol dose - Plan cont current plan of care, PT/OT Plan for CEA here tomorrow and then will need [facility] bed for -: discharge * . - Discharge Day Encounter end time: 11:10
--- NOTE | 2019-03-04 11:01 | PRG ---
DATE OF SERVICE: 03/04/2019 SUBJECTIVE: Mr. Polk is afebrile. OBJECTIVE: VITAL SIGNS: Heart rate 59, blood pressure 145/87, respiratory rate is 20, oximetry is 92% on room air. EXTREMITIES: He has majority of his right upper extremity strength back. His right lower extremity is still weak. LUNGS: Clear. HEART: Regular rhythm. ABDOMEN: Soft. LABORATORY DATA: CT scan was ordered. I reviewed this. The density in his right upper lobe has calcium deposits in it. 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 This should be followed in the Pulmonary Clinic at [facility]. This is how they prefer to take care of other inmates. No elective workup is indicated. PET imaging is not indicated given that we can get that on an inpatient anyway. A 3 to 4-month followup CT would be all I would recommend at this time. With regard to his carotid disease, the [facility] usually likes to have their inmates have elective surgery in [place] if possible. I have talked to the shoe caser about that. With regard to his complaints of right-sided weakness with preserved speech, I would wonder if there was not secondary gain, especially since that his exam was variable and his MRI did not show any acute infarction. This would argue that his carotid disease is chronic and not responsible for the recent neurological complaints that he had. Job ID: [id number]
[2019-03-04] MEDS: Sodium Chloride 0.9% 1,000 ML IV SCH (11:37)
[2019-03-04] MEDS: Latanoprost 0.005% Ophth Soln 2.5 ml Bottle EA EYE SCH (21:27)
[2019-03-04] MEDS: Venlafaxine HCl XR 75 MG CAP PO SCH (21:27)
[2019-03-04] MEDS ORDERED: Benzonatate 100 MG CAP PO PRN (22:25)
[2019-03-05] MEDS: Sodium Chloride 0.9% 1,000 ML IV SCH ×2 (02:23→14:33)
--- NOTE | 2019-03-05 09:01 | PDOC.PN ---
- Subjective Encounter Start Date: 03/05/19 Encounter Start Time: 20:30 Subjective: Patient had CEA done this morning. Some pain in neck since -: surgery. Moving RUE well. States he still can't more RLE. - Objective Resuscitation Status - Order Detail: 03/01/19 00:41 Resuscitation Status Routine Resuscitation Status: FULL: Full Resuscitation MAR Reviewed: Yes Vital Signs & Weight: Vital Signs (12 hours) Temp Pulse Resp BP Pulse Ox 03/05/19 07:54 98.3 F 55 L 18 126/79 94 L 03/05/19 04:00 97.5 F L 57 L 18 119/73 94 L 03/05/19 00:00 97.6 F 60 19 110/74 95 Weight Weight 146 lb 4.8 oz Most Recent Monitor Data Heart Rate from ECG 68 NIBP 148/91 NIBP BP-Mean 110 Respiration from ECG 23 SpO2 100 I&O: 03/04/19 03/05/19 03/06/19 06:59 06:59 06:59 Intake Total 500 500 Output Total 1700 1060 Balance -1200 -560 Result Diagrams: 03/02/19 08:17 03/02/19 08:17 Additional Labs: Accuchecks 03/05/19 03/04/19 03/04/19 06:07 16:48 11:48 POC Glucose 156 H 123 H 177 H Phys Exam - Physical Examination Constitutional: NAD HEENT: moist MMs left CEA incision closed, c/d/i Respiratory: no wheezing, no rales, no rhonchi Cardiovascular: RRR Gastrointestinal: soft, positive bowel sounds Musculoskeletal: no edema RLE not moving Psychiatric: normal affect, A&O x 3 Dx/Plan (1) Acute ischemic stroke Code(s): I63.9 - CEREBRAL INFARCTION, UNSPECIFIED Status: Acute Comment: Severe worsening of RUE and RLE weakness, MRI neg, s/p TPA without complication (2) Carotid stenosis Code(s): I65.29 - OCCLUSION AND STENOSIS OF UNSPECIFIED CAROTID ARTERY Status : Acute Qualifiers: Laterality: left Qualified Code(s): I65.22 - Occlusion and stenosis of left carotid artery Comment: Severe stenosis of Left ICA, ulcerated plaque of Left Carotid bulb and ICA, Dr. Mccarthy following, he would like to to CEA urgently due to degree of stenosis and ulceration of plaque. CEA done this AM without complications. (3) Lung mass Code(s): R91.8 - OTHER NONSPECIFIC ABNORMAL FINDING OF LUNG FIELD Status: Acute Comment: calcified soft tissue mass in right lung apex, most likely scar per CT this AM but can't exclude mass, needs repeat CT as outpatient, appreciate Dr. Rodriguez's recommendations (4) Diabetes mellitus type 2 in obese Code(s): E11.69 - TYPE 2 DIABETES MELLITUS WITH OTHER SPECIFIED COMPLICATION; E66.9 - OBESITY, UNSPECIFIED Status: Chronic Comment: on oral hypoglycemics , decent control (5) Bradycardia Code(s): R00.1 - BRADYCARDIA, UNSPECIFIED Status: Acute Comment: decreased Metoprolol dose - Plan cont current plan of care, PT/OT, DVT proph w/lovenox, DVT proph w/SCDs discharge to [facility] once bed available * . - Discharge Day Encounter end time: 20:40
[2019-03-05] MEDS: Gemfibrozil 600 MG TAB PO SCH ×2 (09:31→17:00)
[2019-03-05] MEDS: Lisinopril 20 MG TAB PO SCH (09:32)
[2019-03-05] MEDS: Aspirin 81 mg Enteric Coated Tablet PO SCH (09:32)
[2019-03-05] MEDS: Furosemide 20 MG TAB PO SCH ×2 (09:32→14:39)
[2019-03-05] MEDS: Atorvastatin Calcium 20 MG TAB PO SCH (09:32)
[2019-03-05] MEDS: glipiZIDE 5 MG TAB PO SCH (09:32)
[2019-03-05] MEDS ORDERED: Heparin 5,000 UNITS/ML VIAL ONE (09:34)
[2019-03-05] MEDS ORDERED: Protamine Sulfate 50 MG/5 ML VIAL ONE (09:34)
[2019-03-05] MEDS ORDERED: Fentanyl 100 MCG/2 ML VIAL ONE ×2 (09:39→13:08)
[2019-03-05] MEDS ORDERED: Norepinephrine 4 MG/4 ML VIAL ONE (09:40)
[2019-03-05] MEDS ORDERED: Phenylephrine HCL 10 MG/ML VIAL ONE (09:40)
[2019-03-05] MEDS ORDERED: Promethazine HCl 25 MG/ML VIAL IM PRN ×2 (13:11→13:17)
[2019-03-05] MEDS ORDERED: Meperidine HCl/PF 25 MG/ML VIAL SLOW IVP PRN (13:11)
[2019-03-05] MEDS ORDERED: Ondansetron HCl/PF 4 MG/2 ML Vial IVP PRN (13:11)
[2019-03-05] MEDS ORDERED: Promethazine HCl 25 MG/ML VIAL SLOW IVP PRN (13:11)
[2019-03-05] MEDS ORDERED: Morphine 2 MG/ML SYRINGE SLOW IVP PRN (13:17)
[2019-03-05] MEDS ORDERED: HYDROcodone/Acetaminophen 5/325 mg Tablet PO PRN (13:17)
[2019-03-05] MEDS ORDERED: Morphine 4 MG/ML VIAL SLOW IVP PRN (13:17)
[2019-03-05] MEDS ORDERED: Acetaminophen 325 MG TAB PO PRN (13:17)
[2019-03-05] MEDS ORDERED: Ondansetron PF 4 MG/2 ML Vial IVP PRN (13:17)
[2019-03-05] MEDS: Insulin Regular 300 UNITS/3 ML VIAL SC PRN ×2 (16:59→20:20)
--- NOTE | 2019-03-05 20:07 | OP ---
DATE OF PROCEDURE: 03/05/2019 PROCEDURE PERFORMED: Left carotid endarterectomy. PREOPERATIVE DIAGNOSIS: Symptomatic left carotid stenosis. POSTOPERATIVE DIAGNOSIS: Symptomatic left carotid stenosis. ANESTHESIA: General endotracheal anesthesia. INDICATIONS: The patient is a 68-year-old diabetic man, who has had previous left hemispheric stroke, who had sudden onset of profound right upper and lower extremity weakness with significant improvement in his right upper extremity, but only mild improvement in the lower. CT angiography demonstrated a complex lesion at the origin of the left internal carotid artery associated with a high-grade stenosis. He is now taken to the operating room for carotid endarterectomy. FINDINGS: Heavily ulcerated plaque at the bulb and origin of the internal carotid associated with a high-grade stenosis. Good ICA backbleeding. Pre-shunt clamp time 6 minutes. Shunt time 18 minutes. Post-shunt clamp time 3 minutes. DESCRIPTION OF PROCEDURE: After informed consent was obtained, the patient was taken to the operating room, placed in supine position on the operating table. After the induction of general anesthesia, the patient's neck was extended and rotated toward the right. His left neck was then prepped and draped in sterile fashion. An oblique incision was made in a skin crease on the left neck. Using a scalpel and electrocautery, the dissection was carried through the subcutaneous tissue and platysma, continuing the dissection anteromedial to the sternocleidomastoid muscle and the internal jugular vein. The facial vein was very large vessel. It was ligated and divided. The common carotid artery was dissected free from its sheath in the vagus nerve and looped with a vessel loop. The dissection was carried distally. The external carotid system was looped with a vessel loop and the internal carotid artery was mobilized in the course of that distal dissection. Additional tributaries to the jugular were ligated and divided, and a pursestring suture was used to control bleeding from the anterior surface of the jugular near the origin of one of those branches. The dissection was carried up to the level of the hypoglossal nerve isolating the internal carotid upward became somewhat tortuous. The patient was heparinized and after adequate circulation time of heparin, the internal carotid, common carotid, external carotid vessels were sequentially occluded. A longitudinal arteriotomy was made in the distal common carotid artery and extended proximally and distally with Yu scissors. An endarterectomy plane was developed at the level of the bulb tips of the scissors and then elevator was used to continue that to develop that plane. Plaque transected at the common carotid level everted from the external carotid system and then broken off distally in the internal carotid. The distal feather was tailored and the endarterectomy bed was forcefully irrigated paying particular attention to the distal feather and the proximal transection. An intraluminal carotid shunt was inserted first distally in the internal carotid and then proximally in the common aspirating on the side port of the shunt before allowing antegrade flow through it into the internal carotid system. The endarterectomy bed was then sequentially debrided, irrigated, and inspected until no more mobile debris remained. The arteriotomy was then sewn from either apex with running 6-0 Prolene suture with about 1 cm of arteriotomy left so at the common carotid level. The shunt was clamped and removed with vascular control being reestablished on the origin of the internal carotid and on the common carotid with vessel loops. The remaining arteriotomy was sewn. The vessels were forward and back bled to allow for flushing of any air or residual debris up the arteriotomy or into the external carotid system. The suture line was secured. Antegrade flow was allowed first into the external carotid and then into the internal carotid. The wound was inspected for hemostasis. One surgical point of bleeding along the suture line at the bulb was easily controlled with [id number] Prolene, but there was diffuse oozing from the adventitia as well as the dissection bed even after packing the wound off. It was opted to reverse the heparin with protamine to facilitate achieving hemostasis. When hemostasis was adequate, the platysma was then reapproximated with running Vicryl. The skin was closed with 5-0 Vicryl subcuticular suture and Dermabond. The patient was awakened and extubated in the operating room and taken to the recovery area in stable condition, moving his extremities at preoperative baseline. Job ID: [id number]
[2019-03-05] MEDS: Latanoprost 0.005% Ophth Soln 2.5 ml Bottle EA EYE SCH (21:04)
[2019-03-05] MEDS: Venlafaxine HCl XR 75 MG CAP PO SCH (21:05)
[2019-03-06] MEDS: HYDROcodone/Acetaminophen 5/325 mg Tablet PO PRN ×3 (01:24→21:03)
[2019-03-06] MEDS: Sodium Chloride 0.9% 1,000 ML IV SCH ×2 (04:17→20:54)
[2019-03-06 04:27] VITALS: BMI 31.9
[2019-03-06] MEDS: Gemfibrozil 600 MG TAB PO SCH ×2 (08:09→14:39)
[2019-03-06] MEDS: Furosemide 20 MG TAB PO SCH ×2 (08:10→14:39)
[2019-03-06] MEDS: Atorvastatin Calcium 20 MG TAB PO SCH (08:10)
[2019-03-06] MEDS: Lisinopril 20 MG TAB PO SCH (08:11)
[2019-03-06] MEDS ORDERED: Aspirin Chewable 81 MG TAB PO SCH (09:00)
[2019-03-06] MEDS: Insulin Regular 300 UNITS/3 ML VIAL SC PRN (11:31)
[2019-03-06 13:03] VITALS: BP 91/53
--- NOTE | 2019-03-06 16:40 | PDOC.PN ---
- Subjective Encounter Start Date: 03/06/19 Encounter Start Time: 11:30 Subjective: Patient reports less pain/soreness from left carotid surgery site. -: Good strength in RUE, still very weak in RLE. No other complaints. - Objective Resuscitation Status - Order Detail: 03/01/19 00:41 Resuscitation Status Routine Resuscitation Status: FULL: Full Resuscitation Vital Signs & Weight: Vital Signs (12 hours) Temp Pulse Pulse Pulse Resp BP BP 03/06/19 16:00 56 L 16 03/06/19 15:00 56 L 16 03/06/19 14:15 56 L 16 03/06/19 14:00 98.1 F 91/53 L 03/06/19 13:00 91/53 L 03/06/19 12:00 91/53 L 03/06/19 11:00 91/53 L 03/06/19 10:59 64 65 171/88 H 03/06/19 10:00 91/53 L 03/06/19 09:00 91/53 L 03/06/19 08:11 91/53 L 03/06/19 08:00 75 18 03/06/19 07:59 75 18 03/06/19 07:21 03/06/19 07:00 98.5 F BP Pulse Ox Pulse Ox Pulse Ox 03/06/19 16:00 03/06/19 15:00 03/06/19 14:15 03/06/19 14:00 03/06/19 13:00 03/06/19 12:00 03/06/19 11:00 03/06/19 10:59 151/84 H 96 97 03/06/19 10:00 03/06/19 09:00 03/06/19 08:11 03/06/19 08:00 97 03/06/19 07:59 97 03/06/19 07:21 100 03/06/19 07:00 Weight Weight 248 lb 14.43 oz Most Recent Monitor Data Heart Rate from ECG 61 NIBP 148/88 NIBP BP-Mean 108 Respiration from ECG 5 SpO2 95 I&O: 03/05/19 03/06/19 03/07/19 06:59 06:59 06:59 Intake Total 500 1383 9280 Output Total 1968 721 8256 Balance -679 236 9242 Result Diagrams: 03/02/19 08:17 03/02/19 08:17 Additional Labs: Accuchecks 03/06/19 03/06/19 03/06/19 11:30 07:54 05:34 POC Glucose 198 H 166 H 163 H 03/05/19 03/05/19 03/05/19 20:20 16:18 14:47 POC Glucose 221 H 183 H 166 H Phys Exam - Physical Examination Constitutional: NAD HEENT: moist MMs left CEA site c/d/i Respiratory: no wheezing, no rales, no rhonchi Cardiovascular: RRR, no significant murmur Gastrointestinal: soft, non-tender, positive bowel sounds Musculoskeletal: no edema minimal movement of RLE Psychiatric: normal affect, A&O x 3 Dx/Plan (1) Acute ischemic stroke Code(s): I63.9 - CEREBRAL INFARCTION, UNSPECIFIED Status: Acute Comment: Severe worsening of RUE and RLE weakness, MRI neg, s/p TPA without complication , hx of recurrent strokes but MRI without obvious lesions. Possibly symptoms are for secondary gain, but right side is consistent with the severe left carotid stenosis. (2) Carotid stenosis Code(s): I65.29 - OCCLUSION AND STENOSIS OF UNSPECIFIED CAROTID ARTERY Status : Acute Qualifiers: Laterality: left Qualified Code(s): I65.22 - Occlusion and stenosis of left carotid artery Comment: Severe stenosis of Left ICA, ulcerated plaque of Left Carotid bulb and ICA, s/p CEA 03/05/19 (3) Lung mass Code(s): R91.8 - OTHER NONSPECIFIC ABNORMAL FINDING OF LUNG FIELD Status: Acute Comment: calcified soft tissue mass in right lung apex, most likely scar per CT this AM but can't exclude mass, needs repeat CT as outpatient, appreciate Dr. Rodriguez's recommendations (4) Diabetes mellitus type 2 in obese Code(s): E11.69 - TYPE 2 DIABETES MELLITUS WITH OTHER SPECIFIED COMPLICATION; E66.9 - OBESITY, UNSPECIFIED Status: Chronic Comment: on oral hypoglycemics , decent control (5) Bradycardia Code(s): R00.1 - BRADYCARDIA, UNSPECIFIED Status: Acute Comment: decreased Metoprolol dose - Plan cont current plan of care, PT/OT d/c to rehab/infirmary when bed available * . - Discharge Day Encounter end time: 11:45
[2019-03-06 20:22] VITALS: TEMP 98.4
[2019-03-06] MEDS: Latanoprost 0.005% Ophth Soln 2.5 ml Bottle EA EYE SCH (21:02)
[2019-03-06] MEDS: Venlafaxine HCl XR 75 MG CAP PO SCH (21:03)
== END 2019-03-06 21:35 | DRG 38 ==
LOC: ERS 22:41 → CCU 23:35 → ERS 03-01 01:35 → 2SE 03-02 18:48 → CCU 03-05 11:10
PROVIDERS: ADMIT Hospitalist; ATTEND Hospitalist
PROC: 3E03317 Introduction of Other Thrombolytic into Peripheral Vein, Percutaneous Approach (ICD-10-PCS; principal; 2019-03-05)
PROC: 03CL0ZZ Extirpation of Matter from Left Internal Carotid Artery, Open Approach (ICD-10-PCS; 2019-03-05)
DX: I63.9 Cerebral infarction, unspecified (principal); E87.2 Acidosis; G81.91 Hemiplegia, unspecified affecting right dominant side; I65.22 Occlusion and stenosis of left carotid artery; I10 Essential (primary) hypertension; E78.5 Hyperlipidemia, unspecified; E11.9 Type 2 diabetes mellitus without complications; J44.9 Chronic obstructive pulmonary disease, unspecified; F17.200 Nicotine dependence, unspecified, uncomplicated; E66.9 Obesity, unspecified; I48.91 Unspecified atrial fibrillation; E87.5 Hyperkalemia; R91.8 Other nonspecific abnormal finding of lung field; Z86.73 Personal history of transient ischemic attack (TIA), and cerebral infarction without residual deficits; Z79.82 Long term (current) use of aspirin; Z98.890 Other specified postprocedural states; Z79.84 Long term (current) use of oral hypoglycemic drugs; Z90.49 Acquired absence of other specified parts of digestive tract
CPT/HCPCS: 36415; 36416; 70450; 70496; 70498; 70551; 71045; 71260; 80048; 80053; 82550; 84484; 85025; 85610; 85730; 93005; 94760; 96361; 96365; J0690; J1642; J1644; J1650; J1815; J2060; J2370; J2720; J2997; J3010; J7050; J7620; Q9966